=== PATIENT | female | born 2005 | race Caucasian/White ===

== ENCOUNTER 2025-07-03 06:17 | Outpatient (REF) | payer BC, SELFPAY ==
--- NOTE | ~2025-07-03 | US_ITS ---
EXAMINATION: US RETROPERITONEAL COMPLETE (RENAL) CLINICAL INFORMATION: Hematuria.. COMPARISON: None available. TECHNIQUE: Real-time imaging of the kidneys and bladder. FINDINGS: RIGHT KIDNEY: 11 x 3 x 5 cm (SAG x AP x TRV). Normal echotexture. Renal cortical thickness is normal. No solid or cystic lesion. No hydronephrosis. LEFT KIDNEY: 10 x 5 x 5 cm (SAG x AP x TRV). Normal echotexture. Renal cortical thickness is normal. No solid or cystic lesion. No hydronephrosis. BLADDER: Fluid-filled. Bilateral ureteral jets are demonstrated. Prevoid bladder volume is 130 mL. Postvoid bladder volume is 2 mL. US/US retroperitoneal comp IMPRESSION: No hydronephrosis. No gross nephrolithiasis. Minimal 2 mm residual urine in a post void image.. Electronically signed by: David Silva MD 07/03/2025 09:54 AM EDT
--- OUTSIDE RECORDS SUMMARY | 2025-07-03 06:23 | XMS_ITS | Encounter Summary ---
Author Organization [facility] Address [address] [place] [address] Phone Care Team Providers Care Post Adoption Coordinator Name Role Phone Latonia Mcgregor DO Primary Care Provider [phone] Encounter Details Date Type Department Care Team (Late st Contact Info) Description 04/21/2017 Conversion Encounter [facility] [address] [place] [phone] Malik Malone MD Social History Tobacco Use Types Packs/Day Years Used Date Smoking Tobacco: Never Assessed Comments Unknown Sex and Gender Information Value Date Recorded Sex Assigned at Not on file Legal Sex Female 12:12 AM EST Gender Identity Female 08/18/2020 9:19 PM EST Sexual Orientation Bisexual 02/23/2023 11 :37 AM EDT documented as of this encounter Plan of Treatment Upcoming Encounters Date Type Department Care Team (Late st Contact Info) Description 09/17/2025 1:30 PM EST Office Visit [facility] [address] [place] [phone] Latonia Mcgregor DO [address] [place] [phone] documented as of this encounter Visit Diagnoses Not on filedocumented in this encounter Care Teams Post Adoption Coordinator Relationship Specialty Start Date End Date Latonia Mcgregor DO [address] [place] [phone] PCP - General Pediatrics 06/04/25 documented as of this encounter
--- OUTSIDE RECORDS SUMMARY | 2025-07-03 06:23 | XMS_ITS | Encounter Summary ---
Author Organization [facility] Address [address] [place] [address] Phone Care Team Providers Care Tobacco Stemmer Machine Name Role Phone Latonia Mcgregor DO Primary Care Provider [phone] Reason for Visit * Reason Comments Med Refill Encounter Details Date Type Department Care Team (Late st Contact Info) Description 07/25/[address] [address] Celine Oliveira NP [address] [place] [address] Anxiety Social History Tobacco Use Types Packs/Day Years Used Date Smoking Tobacco: Never Assessed Comments Unknown Sex and Gender Information Value Date Recorded Sex Assigned at Not on file Legal Sex Female 12:12 AM EST Gender Identity Female 08/18/2020 9:19 PM EST Sexual Orientation Bisexual 02/23/2023 11 :37 AM EDT documented as of this encounter Miscellaneous Notes * Telephone Encounter - Joelle Park LPN - 07/25/2017 9:38 AM EST appt coming up for dec; will send to pcp documented in this encounter Plan of Treatment Upcoming Encounters Date Type Department Care Team (Late st Contact Info) Description 09/17/2025 1:30 PM EST Office Visit [facility] [address] [place] [address] Latonia Mcgregor DO [address] [place] [address] documented as of this encounter Visit Diagnoses Diagnosis Anxiety Anxiety state, unspecified documented in this encounter Care Teams Tobacco Stemmer Machine Relationship Specialty Start Date End Date Latonia Mcgregor DO [address] [place] [address] PCP - General Pediatrics 06/04/25 documented as of this encounter
--- OUTSIDE RECORDS SUMMARY | 2025-07-03 06:23 | XMS_ITS | Clinical Summary ---
Author Organization [facility] Address [address] [place] [address] Care Team Providers Care Gullet Slitter Name Role Phone Cleine Oliveira Primary Care Provider [phone] Allergies Active Allergy Reactions Criticality Noted Date Comments Tobramycin-Dexametha sone Other (see comments) 03/15/2024 Eye itching & redness Medications desvenlafaxine succinate (PRISTIQ) 100 mg 24 hr tablet Take 100 mg by mouth once a day. Active levonorgestreL-e thinyl estrad (DAVI CARL L ESSRADHA) 0.1-20 mg-mcg per tablet Take 1 tablet by mouth once a day. 03/26/2024 Active levomefolate calcium 15 mg tablet Take 15 mg by mouth once a day. Active lamoTRIgine (LaMICtal) 100 mg tablet 11/28/2024 Active Active Problems Problem Noted Date Diagnosed Date Weight loss 03/15/2024 Social History Tobacco Use Types Packs/Day Years Used Date Smoking Tobacco: Never Smokeless Tobacco: Never Tobacco Cessation:Counseling Given: Not Answered Alcohol Use Standard Drinks/Week Comments Not Currently 0 (1 standard drink = 0.6 oz pur e alcohol) [facility] Utilities Answer Date Recorded In the past 12 months has e electric, gas, oil, or water company threatened to shut off services in your home? No 11/24/2024 Hunger Vital Sign Answer Date Recorded Within the past 12 months, y ou worried that your food would run out before you got the money to buy more. Never true 11/25/19 25 Within the past 12 months, t he food you bought just didn't last and you didn't have money to get more. Never true 11/24/2024 Transportation Answer Date Recorded In the past 12 months, has l ack of reliable transportation kept you from medical appointments, meetings, work or from getting things needed for daily living? No 11/24/2024 Housing Answer Date Recorded Housing Risk Low 2 10/26/2024 Housing Risk Medium Not on file 10/26/2024 Housing Risk High Not on file 10/26/2024 What is your living situation today? [facility] 10/26/2024 Comments Unknown Sex and Gender Information Value Date Recorded Sex Assigned at Female 03/28/2024 3:49 PM EDT Legal Sex Female 8:32 AM EDT Gender Identity Female 03/28/2024 3:49 PM EDT Sexual Orientation Choose not to disclose 2023 3:49 PM EDT Last Filed Vital Signs Vital Sign Reading Time Taken Comments Blood Pressure 107/66 12/01/2024 12:41 PM EDT Pulse 72 12/01/2024 12:41 PM EDT Temperature 36.7 C (98.1 F) 03/26/2024 8:13 AM EDT Respiratory Rate 16 03/26/2024 8:13 AM EDT Oxygen Saturation 99% 03/26/2024 8:13 AM EDT Inhaled Oxygen Concentration - - Weight 45.9 kg (101 lb 3.1 oz) 12/01/2024 12:41 PM EDT Height 160.7 cm (5' 3.27 ) 12/01/2024 12:41 PM E DT Body Mass Index 17.77 12/01/2024 12:41 PM EDT Plan of Treatment Health Maintenance Due Date Last Done Comments HIV Screening 2003 Hepatitis C Screening 2003 Pap Smear 2003 1 Week WCC 2003 1 Month WCC 2003 2 Month WCC 2003 4 Month WCC 01/18/2004 6 Month WCC 03/18/2004 9 Month WCC 06/16/2004 12 Month WCC 2004 15 Month WCC 12/13/2004 18 Month WCC 03/13/2005 24 Month WCC 09/09/2005 30 Month WCC 01/13/2006 3 to 21 Year [facility] 2006 Well Child Check 2006 Chlamydia Screening 2019 COVID-19 Vaccine (6 - 2024-2 6 season) 2025 07/22/2023, 07/30/2022, 11/02/2021, Additional history exists Influenza Vaccine (#1) 2025 4, 07/22/2023, 07/30/2022, Additional history exists Depression Screening and Follow-Up 11/24/20252024 [employer] D[employer] of Health Iman ual Screening 11/24/2025 11/24/2024 DTaP,Tdap,and Td Vaccines (7 - Td or Tdap) 04/15/2026 04/15/2016, 10/25/2008, 03/26/2005, Additional history exists RSV Vaccine (60+ years old a nd patients) (1 - 1-dose 75+ series) 2078 Hepatitis B Vaccines Completed 04/21/2004, 2003, 2003 Pneumococcal Vaccine: Pediat janusz (0-5 Years) and At-Risk Patients (6-50 Years) Completed 12/23/2004, 04/21/2004, 02/13/2004, Additional history exists MMR Vaccines Completed 10/25/2008, 12/23/2004 Varicella Vaccines Completed 04/15/2016, 12/23/2004 HPV Vaccines Completed 07/06/2018, 12/21/2017 Meningococcal Vaccine Completed 09/17/2020, 017 Alcohol/Substance Use Screening Completed 5 Insurance [facility] [place] PPO/EPO Advance Directives Documents on File Type Date Recorded Patient In Home [facility] Proxy 03/21/2024 12:07 PM 03-17 * Full Code (Latest Code Status on File) Date Activated Date Inactivated Comments 03/15/2024 2:14 PM 03/26/2024 8:56 PM Care Teams Gullet Slitter Relationship Specialty Start Date End Date Celine Oliveira [address] [place] [phone] PCP - General Pediatrics 03/15/24
--- OUTSIDE RECORDS SUMMARY | 2025-07-03 06:23 | XMS_ITS | Encounter Summary ---
Author Organization [facility] Address [address] [place] [address] Phone Care Team Providers Care Help Desk Rep Name Role Phone Latonia Mcgregor DO Primary Care Provider [phone] Reason for Visit * Reason Comments Med Refill Encounter Details Date Type Department Care Team ([facility] st Contact Info) Description 03/21/2019 Refill [facility] [address] [place] [address] Celine Oliveira NP [address] [place] [address] Encounter for routine child health examination without abnormal findings Social History Tobacco Use Types Packs/Day Years Used Date Smoking Tobacco: Never Assessed Hunger/Food Answer Date Recorded No 12/22/2018 Stable Housing Answer Date Recorded 0 12/22/2018 Transportation Concerns Answer Date Rec orded No 12/22/2018 Hazards in Home Answer Date Recorded No 12/22/2018 Financing Utilities Answer Date Recorde d No 12/22/2018 Safety at Home Answer Date Recorded No 12/22/2018 Outside Support Answer Date Recorded No 12/22/2018 Understanding Health Concerns Answer Da te Recorded No 12/22/2018 Financing Health Concerns Answer Date R ecorded No 12/22/2018 Missing School or Work Answer Date Dominguez rded No 12/22/2018 Comments Unknown Sex and Gender Information Value Date Recorded Sex Assigned at Not on file Legal Sex Female 12:12 AM EST Gender Identity Female 08/18/2020 9:19 PM EST Sexual Orientation Bisexual 02/23/2023 11 :37 AM EDT documented as of this encounter Miscellaneous Notes * Telephone Encounter - Carrie Leal RN - 03/21/2019 7:58 AM EDT W/V 4/11/19 documented in this encounter Plan of Treatment Upcoming Encounters Date Type Department Care Team (Late st Contact Info) Description 09/17/2025 1:30 PM EST Office Visit [facility] [address] [place] [phone] Latonia Mcgregor DO [address] [place] [phone] documented as of this encounter Visit Diagnoses Diagnosis Encounter for routine child health examination without abnormal findings documented in this encounter Care Teams Help Desk Rep Relationship Specialty Start Date End Date Latonia Mcgregor DO [address] [place] [phone] PCP - General Pediatrics 06/04/25 documented as of this encounter
--- OUTSIDE RECORDS SUMMARY | 2025-07-03 06:23 | XMS_ITS | Clinical Summary ---
Author Organization [facility] Address [address] [place] [address] Phone Care Team Providers Care Stippler Name Role Phone Latonia Mcgregor DO Primary Care Provider [phone] Allergies Active Allergy Reactions Criticality Noted Date Comments Tobramycin Itching Makes eye more swollen Medications DESVENLAFAXINE ER PO Take 150 mg by mouth daily. Active L-Methylfolate 15 MG tablet Take 15 mg by mouth daily. Active levonorgestrel- ethinyl estradiol (Sronyx) 0.1-20 MG-MCG per tabletIndicatio ns:Dysmenorrhea Take 1 tablet by mouth every morning. 84 tablet 3 5 Active levonorgestrel- ethinyl estradiol (Sronyx) 0.1-20 MG-MCG per tabletIndicatio ns:Dysmenorrhea Take 1 tablet by mouth every morning. 84 tablet 3 4 06/04/20 25 Discontinu ed(Reorder ) Active Problems Problem Noted Date Diagnosed Date Eating disorder, unspecified 03/07/2024 Overview (06/11/2025): 2024 - completed 3 months residential tx at [facility] traveling accountant, therapist, and psychiatrist Weight loss 02/23/2023 Assessment & Plan (02/23/2023 11:39 AM EDT): Discussed with patient does not seem to be a medical reason for weight loss, which suggests inadequate calorie intake. Reviewed growth charts and BMI and advised to maintain weight. She agrees to come in before returning to school for a weight check. 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 Will refer to allergy to see if they can do patch testing before esr piercing. Depression with anxiety 08/28/2016 Assessment & Plan (02/23/2023 11:40 AM EDT): Stable, followed by psychiatry Assessment & Plan (01/15/2022 9:00 AM EDT): Doing well on Pristiq, meds managed by psychiatry. Advised with transition to college to reach out to therapist as needed for any adjustment issues Assessment & Plan (01/13/2021 8:39 AM EDT): Patient stable, in partial program at [facility] and has appropriate specialty services. Call office as needed. Assessment & Plan (01/01/2020 11:37 AM EDT): Stable. Call for refill prn Assessment & Plan (05/18/2018 3:35 PM EDT): Doing nicely on dose of Fluoxetine 30 mg daily. Will stay on this dose. She did re-start therapy and had a few sessions over the summer. Resolved Problems Problem Noted Date Diagnosed Date Resolved Date Vegan diet 06/03/2020 01/15/2022 Assessment & Plan (06/03/2020 4:32 PM EDT): Will see nutrition. Reviewed growth charts and discussed importance of maintaining weight. Will see what nutrition recommendations are, but should be seen by nutrition or here to assess weight in 1-2 months. Can also get baseline weight at home and recheck in a month to make sure stable. Dysmenorrhea 06/03/2020 01/15/2022 Assessment & Plan (06/03/2020 4:29 PM EDT): Discussed OCP use, side effects, how to take, importance of condom use, handout given from [facility], will re-assess in 3 months. Encounters Date Type Department Care Team Description 06/04/2025 [facility] [address] [place] [phone] Malik Malone MD Dysmenorrhea from Last 3 Months Immunizations Immunization Administration Dates Next Due DTaP 10/25/2008, 5,04/21/2004,02/12,2003 H1N1 Nasal 09/11/2009,08/09/2009 HPV Vaccine 9 Valent 07/06/2018,12/21/2017 Hep B, ped/adol 04/21/2004,2003,2003 Hib (HbOC) 03/26/2005, 4,02/13/2004,11/29 IPV 10/25/2008, 4,02/13/2004,11/29 Influenza, injectable, quadrivalent 05/21/2016 Influenza, injectable, quadr ivalent, preservative free 06/28/2021,05/23/2020,06/14/2019,05/25,06/17/2017 Influenza, intranasal, trivalent 015,07/12/2014,06/05/2013,06/29,06/11/2011,06/25/2010,06/14/2009 ,07/16/2008 MMR 10/25/2008,12/23/2004 Meningococcal B Bexsero 04/22/2022,01/15/2022 Meningococcal Conj (Menactra) MCV4P 09/17/2020,0 12/10/2016 Pneumococcal Conjugate 12/23/2004,2003,02/13/2004,11/29 Tdap 04/15/2016 Varicella 04/15/2016,12/23/2004 Social History Tobacco Use Types Packs/Day Years Used Date Smoking Tobacco: Never Assessed Hunger/Food Answer Date Recorded In the last 12 months, did y ou or your family ever eat less than you felt you should because there wasn't enough money for food? No 02/27/2024 Stable Housing Answer Date Recorded Are you worried that in the next 2 months you may not have stable housing? No 02/27/2024 Transportation Concerns Answer Date Rec orded In the last 12 months, have you or your family ever had to go without healthcare because you didn't have a way to get there? No 02/27/2024 Hazards in Home Answer Date Recorded Think about the place you li ve. Do you have problems with any of the following? Pests (mice or roaches), mold, no/not working smoke detectors, water leaks, no window guards. No 2023 Financing Utilities Answer Date Recorde d In the last 12 months, has t he electric, gas, oil, or water company threatened to shut off your services in your home? No 02/27/2024 Safety at Home Answer Date Recorded Are you or your family worried about feeling saf e in your home? No 02/27/2024 Outside Support Answer Date Recorded Do you feel that you need mo re support from other people or programs to help you care for yourself or your family? No 02/27/2024 Understanding Health Concerns Answer Da te Recorded Do you need help understandi ng your or your child's healthcare needs (diagnosis, medications, plan, etc.)? No 02/27/2024 Financing Health Concerns Answer Date R ecorded In the last 12 months, was t here a time when your child needed to see a doctor or get medications or supplies but could not because of cost? No 02/27/2024 Missing School or Work Answer Date Dominguez rded Did you or your child miss s chool or work because of a health problem that could have been avoided? No 02/27/2024 Child Education Answer Date Recorded Do you have concerns about y our/your child's learning or behavior in school, preschool, or daycare? No 02/27/2024 Comments Unknown Sex and Gender Information Value Date Recorded Sex Assigned at Not on file Legal Sex Female 12:12 AM EST Gender Identity Female 08/18/2020 9:19 PM EST Sexual Orientation Bisexual 02/23/2023 11 :37 AM EDT Last Filed Vital Signs Vital Sign Reading Time Taken Comments Blood Pressure 110/60 10/10/2024 8:27 AM EST Pulse 70 10/10/2024 8:27 AM EST Temperature 37.3 C (99.1 F) 10/10/2022 10:05 AM EST Respiratory Rate 18 03/07/2024 9:23 AM EDT Oxygen Saturation 99% 02/29/2024 11:22 AM EDT Inhaled Oxygen Concentration - - Weight 48.3 kg (106 lb 6.4 oz) 10/10/2024 8:27 A M EST Height 161.4 cm (5' 3.54 ) 10/10/2024 8:27 AM ES T Body Mass Index 18.53 10/10/2024 8:27 AM EST Plan of Treatment Upcoming Encounters Date Type Department Care Team (Late st Contact Info) Description 09/17/2025 1:30 PM EST Office Visit [facility] [address] [place] [address] Latoina Mcgregor, [address] [place] [address] Health Maintenance Due Date Last Done Comments Chlamydia and Gonorrhea Screening 09/13/2024 COVID-19 Vaccine ( season) 2025 07/22/2023, 07/30/2022, 11/02/2021, Additional history exists DTaP,Tdap,and Td Vaccines (7 - Td or Tdap) 04/15/2026 04/15/2016, 10/25/2008, 03/26/2005, Additional history exists Hepatitis B Vaccines Completed 04/21/2004, 2003, 2003 Pneumococcal Vaccine Completed 12/23/2004, 04/21/2004, 02/13/2004, Additional history exists HIB Vaccines Completed 03/26/2005, 05/2004, 02/13/2004, Additional history exists IPV Vaccines Completed 10/25/2008, 06/13, 02/13/2004, Additional history exists MMR Vaccines Completed 10/25/2008, 12/23/2004 Varicella Vaccines Completed 04/15/2016, 12/23/2004 HPV Vaccines Completed 07/06/2018, 12/21/2017 Meningococcal Vaccine Completed 09/17/2020, 017 Men B Vaccine Completed 04/22/2022, 01/15/2022 Influenza Vaccines Completed 06/05/2025, 0 06/11/2024, 07/22/2023, Additional history exists Hepatitis A Vaccines Aged Out No long er eligible based on patient's age to complete this topic Insurance [facility] PPO Care Teams Stippler Relationship Specialty Start Date End Date Latonia Mcgregor DO [address] [place] [phone] PCP - General Pediatrics 06/04/25
--- OUTSIDE RECORDS SUMMARY | 2025-07-03 06:23 | XMS_ITS | Encounter Summary ---
Author Organization [facility] Address [address] [place] [address] Phone Care Team Providers Care Lapidarist Name Role Phone Latonia Mcgregor DO Primary Care Provider [phone] Reason for Visit * Reason Comments Med Refill Encounter Details Date Type Department Care Team (Late st Contact Info) Description 05/21/2018 Refill [facility] [address] [place] [phone] Malik Malone MD Anxiety Social History Tobacco Use Types Packs/Day Years Used Date Smoking Tobacco: Never Assessed Comments Unknown Sex and Gender Information Value Date Recorded Sex Assigned at Not on file Legal Sex Female 12:12 AM EST Gender Identity Female 08/18/2020 9:19 PM EST Sexual Orientation Bisexual 02/23/2023 11 :37 AM EDT documented as of this encounter Miscellaneous Notes * Telephone Encounter - Gaye Ha LPN - 05/21/2018 8:10 AM EDT Last med check was 05/18/2018, sending for refill authorization documented in this encounter Plan of Treatment Upcoming Encounters Date Type Department Care Team (Late st Contact Info) Description 09/17/2025 1:30 PM EST Office Visit [facility] [address] [place] [phone] Latonia Mcgregor DO [address] [place] [phone] documented as of this encounter Visit Diagnoses Diagnosis Anxiety Anxiety state, unspecified documented in this encounter Care Teams Lapidarist Relationship Specialty Start Date End Date CreedLatonia [address] [place] [phone] PCP - General Pediatrics 06/04/25 documented as of this encounter
== END 2025-07-03 06:18 | disposition home or self-care (01) ==
LOC: HO.UMASIMG 06:17
PROVIDERS: Visit Provider Family Medicine
DX: R31.9 Hematuria, unspecified (principal); F50.9 Eating disorder, unspecified
CPT/HCPCS: 76770

== ENCOUNTER → 2025-07-03 08:48 | Outpatient (BNV) | payer BC, SELFPAY | PROVIDERS: Visit Provider Radiology Diagnostic Radiology | DX: R31.9 Hematuria, unspecified (principal) | CPT/HCPCS: 76770 ==